=== PATIENT | female | born 1990 | race African-American/Black ===

== ENCOUNTER 2018-01-02 15:47 | Inpatient (IN) | payer OTHER ==
[2018-01-02 18:49] LABS: BASO % 0.2 % (0-2.0); EOS % 0.4 % (0-4.5); HEMATOCRIT 36.3 % (32.4-45.2); HEMOGLOBIN 12.6 GM/dL (10.7-15.3); MCH 31.5 pg (25.7-33.7); MCHC 34.6 g/dl (32.0-36.0); MEAN CELL VOLUME 91.2 fl (80-96); MEAN PLT VOLUME 9.1 fl (7.5-11.1); MONO % 12.1 % (3.8-10.2); NEUT % 70.3 % (42.8-82.8); PLATELET COUNT 193 K/MM3 (134-434); RBC 3.98 M/mm3 (3.60-5.2); RDW 14.6 % (11.6-15.6); WHITE BLOOD COUNT 5.5 K/mm3 (4.0-10.0)
[2018-01-02 18:50] LABS: RETICULOCYTES 2.24 % (0.5-1.5)
[2018-01-02 19:19] LABS: ALBUMIN 2.4 g/dl (3.4-5.0); ALK PHOS 122 U/L (45-117); ANION GAP 9 MMOL/L (8-16); BILIRUBIN,TOTAL 0.2 mg/dL (0.2-1); BLOOD UREA NITROGEN 9 mg/dL (7-18); CALCIUM 8.4 mg/dL (8.5-10.1); CHLORIDE 108 mmol/L (98-107); CO2 24 mmol/L (21-32); CREATININE 0.7 mg/dL (0.55-1.3); GAMMA GLUTAMYL TRANSPEPTIDASE 15 U/L (5-85); GLUCOSE,RANDOM 88 mg/dL (74-106); SGOT/AST 16 U/L (15-37); SGPT/ALT 20 U/L (13-61); SODIUM 141 mmol/L (136-145); TOT PROT 5.5 g/dl (6.4-8.2); URIC ACID 6.1 mg/dL (2.6-7.2)
[2018-01-02 19:31] LABS: URINE APPEARANCE SLCLOUDY; URINE BILIRUBIN NEGATIVE (<2.0 mg/dL); URINE COLOR DKYELLOW; URINE GLUCOSE (UA) NEGATIVE (NEGATIVE); URINE KETONE NEGATIVE (NEGATIVE); URINE LEUK ESTERASE NEGATIVE (NEGATIVE); URINE NITRITE NEGATIVE (NEGATIVE); URINE PROTEIN 3+ (NEGATIVE); URINE UROBILINOGEN NEGATIVE mg/dL (0.2-1.0)
[2018-01-02 19:42] LABS: EPI CELLS RARE /HPF (FEW); URINE BACTERIA RARE /hpf (NONE SEEN); URINE MUCUS FEW
[2018-01-02] MEDS ORDERED: BUTORPHANOL TARTRATE 1 MG/ML VIAL IVPB ONE (20:40)
[2018-01-02] MEDS ORDERED: PROMETHAZINE HCL 25 MG/1 ML VIAL IVPB ONE (20:40)
[2018-01-02 22:04] LABS: INR 0.85 (0.83-1.09)
[2018-01-02 22:06] LABS: ACTIVATED PTT 27.4 SECONDS (25.2-36.5)
[2018-01-02 22:09] LABS: ANION GAP 8 MMOL/L (8-16); BLOOD UREA NITROGEN 9 mg/dL (7-18); CALCIUM 8.2 mg/dL (8.5-10.1); CHLORIDE 108 mmol/L (98-107); CO2 26 mmol/L (21-32); CREATININE 0.7 mg/dL (0.55-1.3); GLUCOSE,RANDOM 73 mg/dL (74-106); SODIUM 141 mmol/L (136-145)
[2018-01-02] MEDS ORDERED: DINOPROSTONE 10 MG VAGINAL SUPPOSITORY VG ONE (22:15)
[2018-01-02 23:32] VITALS: BMI 38.0
[2018-01-03] MEDS: ELECTROLYTE-148 SOLN 1,000 ML IV SCH ×3 (04:00→18:30)
[2018-01-03] MEDS ORDERED: PROMETHAZINE HCL 25 MG/1 ML VIAL ONE (05:28)
[2018-01-03] MEDS ORDERED: BUTORPHANOL TARTRATE 1 MG/ML VIAL ONE ×2 (05:28)
[2018-01-03] MEDS ORDERED: TUBERCULIN PPD 5 TU/0.1ML SYRINGE (IN PATIENT USE ONLY) ID ONE (07:30)
--- NOTE | 2018-01-03 10:16 | PN ---
Ante-Partal Exam - Subjective Vital Signs: Vital Signs Temperature 97.9 F 01/03/18 08:00 Pulse Rate 63 01/03/18 09:00 Respiratory Rate 20 01/03/18 09:00 Blood Pressure 158/101 H 01/03/18 09:00 O2 Sat by Pulse Oximetry (%) Bleeding: No Headache: No Visual changes: No Right upper quadrant pain: No - Contractions Contractions: Yes Regularity: Regular Intensity: Mod/Strong - Exam during Labor Heart Rate: 135 Variability: Minimal Category: I Monitor Accelerations: Present Monitor Decelerations: None Exam: Vaginal Dilatation (cm): 4.5 Effacement (%): 60 Amniotic Membrane Status: Ruptured Nitrazine Test: Positive Amniotic Fluid: Clear Presentation: Vertex Station: -3 - Assessment/Plan Assessment/Plan: 27 y/o with SIUP at 39 weeks, IOL for preEclampsia AFVSS FHTs cat 1 IOL, s/p cervidil, removed this a.m., now in active labor for epidural continue expectant management if BPs elevated s/p epidural will administer antihypertensives, pt denies c/o headaches/RUQ pain or changes in vision,
[2018-01-03] MEDS ORDERED: FENTANYL/BUPIVACAINE/NS/PF - PCEA - 50 ML DISP.SYRIN EP ONE (10:20)
--- NOTE | 2018-01-03 10:23 | HP ---
Past Medical History - Admission Chief Complaint: here with elevated BPS from office for IOL History of Present Illness: 27 y/o female with gestational HTN admitted for induction. Pt received cervidil overnight which was removed at this a.m. S/P stadol/phenergan this a.m. Pt with h/o De La Paz Rods for scoliosis at age 9. Pt asymptomatic, denies MULTANI/RUQ pain or changes in vision. Some LE edema, nonpitting. History Source: Patient, Medical Record Limitations to Obtaining History: No Limitations - Past Medical History Cardiovascular: Yes: HTN (gestational this only) Pulmonary: Yes: Asthma Gastrointestinal: Yes: GERD Hepatobiliary: No: Hepatitis B, Hepatitis C Reproductive: No: Ectopic , Fibroids ...: 7 ...Para: 0 ...Term: 0 ...: 0 ...Spon : 1 ...Induced : 5 ... Weeks Gestation by Dates: 39.2 ...EDC by Dates: 01/07/18 ...EDC by Sono: 01/07/18 Infectious Disease: No: HIV, MRSA Psych: No: Anxiety, Bipolar, Depression - Past Surgical History Hx Myomectomy: No Hx Transabdominal Cerclage: No Additional Surgical History: De La Paz Rods,. D&C - Smoking History Smoking history: Never smoked - Alcohol/Substance Use Hx Alcohol Use: No - Social History Usual Living Arrangement: Yes: With Significant Other ADL: Independent History of Recent Travel: No Home Medications - Allergies Allergies/Adverse Reactions: Allergies Allergy/AdvReac Type Severity Reaction Status Date / Time No Known Allergies Allergy Verified 04/25/13 18:01 - Home Medications Home Medications: Ambulatory Orders No Home Medications 0 dose .ROUTE UTDICT 03/09/13 Review of Systems - Review of Systems Constitutional: reports: No Symptoms Eyes: reports: No Symptoms HENT: reports: No Symptoms Neck: reports: No Symptoms Cardiovascular: reports: No Symptoms Respiratory: reports: No Symptoms Gastrointestinal: reports: No Symptoms Genitourinary: reports: No Symptoms Breasts: reports: No Symptoms Reported Musculoskeletal: reports: No Symptoms Integumentary: reports: No Symptoms Neurological: reports: No Symptoms Endocrine: reports: No Symptoms Hematology/Lymphatic: reports: No Symptoms Psychiatric: reports: No Symptoms Physical Exam - Maternity Vital Signs: Vital Signs Temperature 97.9 F 01/03/18 08:00 Pulse Rate 63 01/03/18 09:00 Respiratory Rate 20 01/03/18 09:00 Blood Pressure 158/101 H 01/03/18 09:00 O2 Sat by Pulse Oximetry (%) Constitutional: Yes: Well Nourished, Mild Distress (with contractions) Neck: Yes: Supple Cardiovascular: Yes: Regular Rate and Rhythm Lungs: Clear to auscultation - Abdominal Exam/OB Presentation: Vertex Contractions: Yes Regularity: Regular Intensity: Mod/Strong Category: I Accelerations: Uniform Decelerations: None - Vaginal Exam/OB Amniotic Membrane Status: Ruptured (for clear fluid at 9am) Presentation: Vertex/Position Station: -3 - Physical Exam Edema: Yes Edema: LLE: 1+, RLE: 1+ Psychiatric: Yes: Alert, Oriented - Labs Lab Results: CBC, BMP 01/02/18 17:30 01/02/18 18:00 Hemorrhage Risk Assessment - Risk Factors Medium Risk Factors: Yes: None High Risk Factors: Yes: None Risk Score: 1 Risk Level: Medium Risk Problem List - Problems (1) Pre-eclampsia Code(s): O14.90 - UNSPECIFIED PRE-ECLAMPSIA, UNSPECIFIED TRIMESTER (2) Term Code(s): Z34.80 - ENCOUNTER FOR SUPRVSN OF NORMAL , UNSP TRIMESTER Assessment/Plan 27 y/o with SIUP at 39.2 weeks, IOL for gHTN, diagnosed with pre Eclampsia upon admission FHTS cat 1 gHTN/preEclampsia - IOL, BPs overall within mild range, occasional severe range pressures with contractions, will administer magnesium/antihypertensives if pt becomes symptomatic or severe range pressures persist s/p cervidil, now in active labor continue current management
[2018-01-03] MEDS ORDERED: LIDOCAINE HCL 1% PRESERVATIVE FREE - 30ML VIAL ONE (10:44)
[2018-01-03] MEDS ORDERED: BUTORPHANOL TARTRATE 1 MG/ML VIAL IVPB ONE ×2 (11:22→15:39)
[2018-01-03] MEDS ORDERED: PROMETHAZINE HCL 25 MG/1 ML VIAL IVPUSH ONE ×2 (11:22→15:39)
--- NOTE | 2018-01-03 15:39 | PN ---
Ante-Partal Exam - Subjective Subjective: Pt tolerating contractions. Vital Signs: Vital Signs Temperature 98.7 F 01/03/18 12:05 Pulse Rate 66 01/03/18 15:00 Respiratory Rate 20 01/03/18 15:00 Blood Pressure 139/83 01/03/18 15:00 O2 Sat by Pulse Oximetry (%) Bleeding: No Headache: No Visual changes: No Right upper quadrant pain: No Pain (scale 1-10): 2 - Contractions Contractions: Yes Regularity: Irregular - Exam during Labor Heart Rate: 135 Variability: Moderate Category: I Monitor Accelerations: Present Monitor Decelerations: None Exam: Vaginal Dilatation (cm): 6 Amniotic Membrane Status: Ruptured (exam per nursing staff) Nitrazine Test: Positive Presentation: Vertex Station: -3 - Assessment/Plan Assessment/Plan: Plan of care discussed with pt pt unable to get epidural tolerating with stadol/phenergan does not desire c section at this time will start pitocin then use stadol/phenergan PRN pain
[2018-01-03] MEDS ORDERED: OXYTOCIN 30 UNITS in 0.9% NS 30 UNIT/500 ML INFUS.BAG IVPB SCH (15:45)
[2018-01-03] MEDS ORDERED: OXYTOCIN 30 UNITS in 0.9% NS 30 UNIT/500 ML INFUS.BAG IVPB ONE (15:51)
--- NOTE | 2018-01-04 | PN ---
Ante-Partal Exam - Subjective Subjective: Pt with mild pain Vital Signs: Vital Signs Temperature 98.8 F 01/03/18 23:00 Pulse Rate 69 01/03/18 23:00 Respiratory Rate 20 01/03/18 23:00 Blood Pressure 143/93 01/03/18 23:00 O2 Sat by Pulse Oximetry (%) Bleeding: No Headache: No Visual changes: No Right upper quadrant pain: No - Contractions Contractions: Yes Regularity: Irregular Intensity: Mild Monitor Mode: External - Exam during Labor Heart Rate: 140 Category: I Monitor Accelerations: Present Monitor Decelerations: None Exam: Vaginal Dilatation (cm): 6 cm Amniotic Fluid: Clear Presentation: Vertex Station: -2 - Assessment/Plan Assessment/Plan: Cat 1 hypertension Plan pitocin augmentation pt and BF discussed desire to wait to see if made progress
--- NOTE | 2018-01-04 00:02 | PN ---
Ante-Partal Exam - Subjective Vital Signs: Vital Signs Temperature 98.8 F 01/03/18 23:00 Pulse Rate 69 01/03/18 23:00 Respiratory Rate 20 01/03/18 23:00 Blood Pressure 143/93 01/03/18 23:00 O2 Sat by Pulse Oximetry (%) - Exam during Labor Category: I Monitor Accelerations: Present Monitor Decelerations: None Exam: Vaginal Dilatation (cm): 7 cm Presentation: Vertex Station: -1 - Intrapartum Hemorrhage Risk Risk Score: 0 Risk Level: Low Risk - Assessment/Plan Assessment/Plan: induction of labor Cat 1 Plan continue pitocin
[2018-01-04] MEDS ORDERED: AMPICILLIN SODIUM 2 GM VIAL ONE (02:53)
[2018-01-04] MEDS ORDERED: DEXAMETHASONE SOD PHOSPHATE 4 MG/1 ML VIAL IVPUSH PRN (03:44)
[2018-01-04] MEDS ORDERED: PROMETHAZINE HCL 25 MG/1 ML VIAL IVPB PRN (03:44)
[2018-01-04] MEDS ORDERED: ONDANSETRON 4 MG/2 ML VIAL IVPUSH PRN (03:44)
[2018-01-04] MEDS ORDERED: HYDROmorphone *PCA* 10MG/50ML DISP.SYRIN PCA SCH (03:45)
[2018-01-04] MEDS ORDERED: LACTATED RINGERS SOLUTION 1,000 ML IV SCH (03:45)
[2018-01-04] MEDS ORDERED: SUCCINYLCHOLINE CHLORIDE 200 MG/10 ML VIAL ONE (03:51)
[2018-01-04] MEDS ORDERED: PROPOFOL 20 ML ONE (03:51)
[2018-01-04] MEDS ORDERED: MIDAZOLAM HCL 2 MG/2 ML SINGLE DOSE VIAL ONE (03:51)
[2018-01-04] MEDS ORDERED: LIDOCAINE HCL/PF 2% SDV 5ML VIAL ONE (03:53)
[2018-01-04] MEDS ORDERED: CLINDAMYCIN PHOSPHATE 600 MG/4 ML VIAL ONE (04:00)
[2018-01-04] MEDS ORDERED: OXYTOCIN 10 UNITS/ML VIAL ONE (04:10)
[2018-01-04] MEDS ORDERED: DEXAMETHASONE SOD PHOSPHATE 4 MG/1 ML VIAL ONE (04:11)
[2018-01-04] MEDS ORDERED: KETOROLAC TROMETHAMINE 30 MG/1 ML VIAL ONE (04:16)
[2018-01-04] MEDS ORDERED: OXYTOCIN 20 UNITS in 0.9% NS 20 UNIT/1,000 ML INFUS.BAG IV ONE (04:22)
[2018-01-04 04:55] LABS: ARTERIAL BLOOD GAS PCO2 42.5 mmHg (35-45); ARTERIAL BLOOD GAS pH 7.34 (7.35-7.45)
--- NOTE | 2018-01-04 04:58 | PN ---
Ante-Partal Exam - Subjective Subjective: Pt with no progress by exam Vital Signs: Vital Signs Temperature 99.5 F 01/04/18 02:49 Pulse Rate 72 01/04/18 02:49 Respiratory Rate 18 01/04/18 02:49 Blood Pressure 153/93 01/04/18 02:49 O2 Sat by Pulse Oximetry (%) Bleeding: Yes - Contractions Contractions: Yes Regularity: Regular Monitor Mode: External - Exam during Labor Category: II Monitor Accelerations: Present Monitor Decelerations: Variable Exam: Vaginal Dilatation (cm): 7 Effacement (%): 90 Amniotic Membrane Status: Ruptured Presentation: Vertex Station: -1 - Assessment/Plan Assessment/Plan: Failure to Progress Hypertension 39 week Cat 2 hx of scoliosis Plan primary low transverse section notify Peds and anesthesia pt informed will need general anesthesia
[2018-01-04] MEDS ORDERED: ELECTROLYTE-148 SOLN 1,000 ML IV SCH (05:00)
[2018-01-04 05:14] LABS: ARTERIAL BLOOD GAS PO2 34.9 mmHg (80-100)
[2018-01-04 05:17] LABS: VENOUS PC02 44.2 mmHg (38-52); VENOUS PH 7.35 (7.32-7.42); VENOUS PO2 36.3 mmHg (28-48)
--- NOTE | 2018-01-04 06:02 | OP ---
Operative Note - Note: Operative Date: 01/04/18 Pre-Operative Diagnosis: Failure to progress. hypertension. IUPat 39 week Operation: Low transverse Section Findings: live female infant Post-Operative Diagnosis: Same as Pre-op Surgeon: Juanita Chou Cook Larder: Alexander Montalvo Anesthesia: General Estimated Blood Loss (mls): 700 Operative Report Dictated: Yes
[2018-01-04] MEDS ORDERED: METHYLERGONOVINE MALEATE 0.2 MG/1 ML AMP IM PRN (06:18)
[2018-01-04] MEDS ORDERED: IBUPROFEN 800 MG/8 ML IJ IVPB PRN (06:18)
[2018-01-04] MEDS ORDERED: HYDROmorphone *PCA* 10MG/50ML DISP.SYRIN PCA ONE (06:30)
[2018-01-04] MEDS ORDERED: OXYTOCIN 20 UNITS in 0.9% NS 20 UNIT/1,000 ML INFUS.BAG IV SCH (06:30)
--- NOTE | 2018-01-04 06:53 | OP ---
DATE OF OPERATION: 01/04/2018 PREOPERATIVE DIAGNOSES: Failure to progress, hypertension, intrauterine at 39 weeks. OPERATION: Low transverse section. FINDINGS: Live female . SURGEON: Hakeem Chou MD EMISSIONS TESTING AND REPAIR TECHNICIAN: BURAK Ramirez; unavailable POSTOPERATIVE DIAGNOSES: Failure to progress, hypertension, intrauterine at 39 weeks. ANESTHESIOLOGIST: Abdoulaye Maradiaga MD ANESTHESIA: General. ESTIMATED BLOOD LOSS: 700 mL. PROCEDURE: Patient was taken to the operating room, placed in the supine position, prepped and draped in the usual sterile fashion. After general anesthesia had been given scalpel was then used to make a low transverse Pfannenstiel skin incision. Cautery was then used to go through the layers of the abdominal wall to the level of the fascia. Fascia was cut in the midline and cautery was then used to open the fascia in a smiling fashion. Tameka was then used to bluntly and sharply dissect the rectus muscle off the fascia. Muscle split in the midline. Peritoneal cavity was then entered and carried up and downward. Bladder retractor was then placed. Vesicouterine reflection was then entered. Scalpel was then used to make a low transverse uterine incision. Incision was carried up with the use of bandage scissors. A live female infant was delivered in ROT position. Nose and mouth suction performed. Shoulders were delivered without difficulty. Cord was clamped and cut. Cord blood obtained. Cord pH obtained. Placenta was manually extracted from the uterus. Uterus exteriorized and cleaned with clean lap pads. DeLee cord clamping was also done. Uterine incision was then closed using 0 Biosyn suture, 1st layer continuous interlocking, 2nd layer imbricating the 1st layer. Hemostasis was achieved using figure-of-8 sutures. Uterus interiorized. Abdominal cavity cleaned with clean lap pad. Peritoneum closed with 0 Biosyn suture. Fascia was then closed using 0 Vicryl suture in 2 parts. Subcutaneous was closed using interrupted sutures using 0 Biosyn suture. Skin was then closed using 3-0 Vicryl in subcuticular fashion. Wound was washed and dressed. Patient tolerated procedure well. Estimated blood loss is 700 mL. HAKEEM CHOU M.D. [id number]
[2018-01-04] MEDS ORDERED: AMPICILLIN - 2 GM in SODIUM CHLORIDE 100 ML IVPB ONE (07:00)
[2018-01-04] MEDS ORDERED: DEXTROSE 5%-WATER - 50 ML IVPB ONE ×2 (09:46→17:40)
[2018-01-04] MEDS ORDERED: ceFAZolin SODIUM 1 GM VIAL ONE ×2 (09:46→17:40)
[2018-01-04] MEDS: CEFAZOLIN 1 GM in DEXTROSE 5%-WATER - 50 ML IVPB SCH ×2 (09:49→17:47)
[2018-01-04] MEDS ORDERED: CEFAZOLIN 1 GM in DEXTROSE 5%-WATER - 50 ML IVPB SCH (10:00)
[2018-01-04] MEDS ORDERED: AMPICILLIN - 1 GM in SODIUM CHLORIDE 100 ML IVPB SCH (11:00)
[2018-01-04] MEDS ORDERED: ALBUTEROL SO4 8 GM HFA INHALER IH PRN (14:41)
[2018-01-05] MEDS: CEFAZOLIN 1 GM in DEXTROSE 5%-WATER - 50 ML IVPB SCH (03:44)
[2018-01-05] MEDS ORDERED: PCA PUMP KEY 1 EACH EACH ONE (06:08)
[2018-01-05] MEDS ORDERED: oxyCODONE HCL 5 MG TABLET PO PRN (06:18)
[2018-01-05] MEDS ORDERED: BISACODYL 10 MG SUPP.RECT RC PRN (06:18)
[2018-01-05 07:43] LABS: BASO % 0.2 % (0-2.0); HEMATOCRIT 29.6 % (32.4-45.2); HEMOGLOBIN 9.7 GM/dL (10.7-15.3); LYMPH % 18.1 % (8-40); MCH 31.2 pg (25.7-33.7); MCHC 32.6 g/dl (32.0-36.0); MEAN CELL VOLUME 95.9 fl (80-96); MEAN PLT VOLUME 8.4 fl (7.5-11.1); MONO % 10.2 % (3.8-10.2); NEUT % 70.5 % (42.8-82.8); PLATELET COUNT 176 K/MM3 (134-434); RBC 3.09 M/mm3 (3.60-5.2); RDW 15.2 % (11.6-15.6); WHITE BLOOD COUNT 8.9 K/mm3 (4.0-10.0)
--- NOTE | 2018-01-05 08:15 | PN ---
Progress Note (SOAP) - Subjective Chief Complaint: Pt doing well - Current Medications Current Medications: Active Medications Acetaminophen (Tylenol -) 650 mg PO Q4H PRN PRN Reason: FEVER Albuterol Sulfate (Ventolin Hfa Inhaler -) 2 puff IH Q4H PRN PRN Reason: SHORTNESS OF BREATH Bisacodyl (Dulcolax Suppository -) 10 mg RC PRN PRN PRN Reason: CONSTIPATION Dexamethasone Sodium Phosphate (Decadron Injection -) 4 mg IVPUSH ONCE PRN PRN Reason: NAUSEA AND/OR VOMITING Diphenhydramine HCl (Benadryl Injection -) 12.5 mg IVPUSH ONCE PRN PRN Reason: FOR ITCHING Diphtheria/Tetanus/Acell Pertussis (Boostrix -) 0.5 ml IM .ONCE ONE Stop: 01/06/18 10:01 Ferrous Sulfate (Feosol -) 325 mg PO BID FRANCISCO Hydromorphone HCl (Dilaudid Ruling Machine Feeder -) 10 mg PRIVATE SECRETARY PRIVATE SECRETARY FRANCISCO; Protocol Stop: 01/11/18 03:45 Last Admin: 01/04/18 06:33 Dose: 10 mg Parenteral Electrolytes (Plasma-Lyte 148 -) 1,000 mls @ 125 mls/hr IV ASDIR FRANCISCO Oxytocin/Sodium Chloride (Normal Saline+20 Units Oxytocin -) 20 unit in 1,000 mls @ 125 mls/hr IV ASDIR FRANCISCO Last Admin: 01/04/18 07:32 Dose: 125 mls/hr Cefazolin Sodium 1 gm/ (Dextrose) 50 mls @ 100 mls/hr IVPB Q8H-IV FRANCISCO Stop: 01/05/18 09:59 Last Admin: 01/05/18 03:44 Dose: 100 mls/hr Ibuprofen (Caldolor Injection -) 800 mg IVPB Q8H PRN PRN Reason: FEVER Ibuprofen (Motrin -) 600 mg PO Q4H PRN PRN Reason: PAIN LEVEL 1 - 3 Influenza Virus Vaccine Quadrival (Flulaval Quad 4567-1680) 60 mcg IM .ONCE ONE Stop: 01/06/18 10:01 Methylergonovine Maleate (Methergine Injection -) 0.2 mg IM Q4H PRN PRN Reason: Excessive Bleeding (L&D) Ondansetron HCl (Zofran Injection) 4 mg IVPUSH Q4H PRN PRN Reason: NAUSEA AND/OR VOMITING Oxycodone HCl (Roxicodone -) 5 mg PO Q4H PRN PRN Reason: PAIN LEVEL 4 - 6 Oxycodone HCl (Roxicodone -) 10 mg PO Q4H PRN PRN Reason: PAIN LEVEL 7 - 10 Pneumococcal 13-Valent Conj Vacc (Prevnar 13 Syringe -) 0.5 ml IM .ONCE ONE Stop: 01/06/18 10:01 Multivit/Folic Acid/Iron ( Vitamins (Sjr) -) 1 tab PO DAILY FRANCISCO Promethazine HCl (Phenergan Injection -) 12.5 mg IVPB Q6H PRN PRN Reason: NAUSEA AND/OR VOMITING Simethicone (Mylicon -) 80 mg PO Q4H PRN PRN Reason: GAS - Objective Vital Signs: Vital Signs Temperature 98.5 F 01/05/18 06:00 Pulse Rate 76 01/05/18 06:00 Respiratory Rate 18 01/05/18 06:00 Blood Pressure 136/89 01/05/18 06:00 O2 Sat by Pulse Oximetry (%) 100 01/04/18 07:30 Constitutional: Yes: Well Nourished, No Distress Cardiovascular: Yes: WNL Gastrointestinal: Yes: WNL, Normal Bowel Sounds, Soft ....Post : Yes: Uterus firm, Uterus non-tender Breast(s): Yes: WNL Musculoskeletal: Yes: WNL Extremities: Yes: WNL Peripheral Pulses WNL: No Edema: No Wound/Incision: Yes: Clean/Dry, Well Approximated, Open to air Labs Lab Results: CBC, BMP 01/02/18 18:00 Problem List - Problems (1) delivery delivered Code(s): O82 - ENCOUNTER FOR DELIVERY WITHOUT INDICATION Assessment/Plan POD 1 stable Plan OOB continue present management
[2018-01-05] MEDS: SIMETHICONE 80 MG TAB.CHEW (FP) PO PRN ×2 (09:07→13:54)
[2018-01-05] MEDS: oxyCODONE HCL 5 MG TABLET PO PRN ×2 (09:07→13:54)
[2018-01-05] MEDS: PRENATAL VITAMINS W/ FOLIC ACID TABLET (FP) PO SCH (09:07)
[2018-01-05] MEDS: FERROUS SO4 325 MG TABLET (FP) PO SCH ×2 (09:07→21:15)
[2018-01-05] MEDS: IBUPROFEN 600 MG TABLET (FP) PO PRN ×2 (09:07→13:55)
--- NOTE | 2018-01-05 09:55 | PN ---
Progress Note (short form) - Note Progress Note: Anesthesia/Pain Pt seen and examined S:Alert and awake comfortable O: Vital Signs Temperature 98.7 F 01/05/18 08:13 Pulse Rate 81 01/05/18 08:13 Respiratory Rate 20 01/05/18 08:13 Blood Pressure 137/90 01/05/18 08:13 O2 Sat by Pulse Oximetry (%) 100 01/04/18 07:30 CBC, BMP 01/05/18 06:40 01/02/18 18:00 a/p: Current Active Problems delivery delivered (Acute) Pre-eclampsia (Acute) Term (Acute) doing well post op [facility] ROOM stopped Continue current care Jack Davila MD
[2018-01-06] MEDS: SIMETHICONE 80 MG TAB.CHEW (FP) PO PRN ×4 (00:58→23:51)
[2018-01-06] MEDS: IBUPROFEN 600 MG TABLET (FP) PO PRN ×4 (00:58→23:52)
[2018-01-06] MEDS: oxyCODONE HCL 5 MG TABLET PO PRN ×4 (00:59→23:52)
[2018-01-06] MEDS: PRENATAL VITAMINS W/ FOLIC ACID TABLET (FP) PO SCH (09:52)
[2018-01-06] MEDS: FERROUS SO4 325 MG TABLET (FP) PO SCH ×2 (09:52→22:18)
[2018-01-06] MEDS ORDERED: FLU VACCINE QUAD 60 MCG/0.5 ML (MDV 18-19) IM ONE (10:00)
[2018-01-06] MEDS ORDERED: DIPHTH,PERTUSS(ACELL),TET 0.5 ML DISP.SYRIN IM ONE (10:00)
[2018-01-06] MEDS ORDERED: PNEUMOC 13-VAL CONJ-DIP CRM/PF 0.5 ML DISP.SYRIN IM ONE (10:00)
--- NOTE | 2018-01-06 10:13 | PN ---
Post Progress Note - Subjective Subjective: 27 yo Para 1 status post primary , seen and evaluated. Doing well Post Day: 2 Type of Delivery: Primary C/S Vital Signs: Vital Signs Temperature 98.3 F 01/06/18 10:00 Pulse Rate 79 01/06/18 10:00 Respiratory Rate 20 01/06/18 10:00 Blood Pressure 129/70 01/06/18 10:00 O2 Sat by Pulse Oximetry (%) 100 01/04/18 07:30 Uterus: Yes: Fundus Firm Incision: Yes: Dressing dry and intact Abdomen/GI: Yes: Abdomen soft, Tolerating PO Lochia: Yes: Rubra Lochia, amount: Small Extremities: Yes: Calves non-tender Activity: Ambulating - Labs Labs: CBC WBC 8.9 K/mm3 (4.0-10.0) 01/05/18 06:40 RBC 3.09 M/mm3 (3.60-5.2) L 01/05/18 06:40 Hgb 9.7 GM/dL (10.7-15.3) L 01/05/18 06:40 Hct 29.6 % (32.4-45.2) L D 01/05/18 06:40 MCV 95.9 fl (80-96) 01/05/18 06:40 MCH 31.2 pg (25.7-33.7) 01/05/18 06:40 MCHC 32.6 g/dl (32.0-36.0) 01/05/18 06:40 RDW 15.2 % (11.6-15.6) 01/05/18 06:40 Plt Count 176 K/MM3 (134-434) 01/05/18 06:40 MPV 8.4 fl (7.5-11.1) 01/05/18 06:40 Absolute Neuts (auto) 6.3 K/mm3 (1.5-8.0) 01/05/18 06:40 Neutrophils % 70.5 % (42.8-82.8) 01/05/18 06:40 Lymphocytes % 18.1 % (8-40) 01/05/18 06:40 Monocytes % 10.2 % (3.8-10.2) 01/05/18 06:40 Eosinophils % 1.0 % (0-4.5) D 01/05/18 06:40 Basophils % 0.2 % (0-2.0) 01/05/18 06:40 Nucleated RBC % 0 % (0-0) 01/05/18 06:40 Retic Count 2.24 % (0.5-1.5) H 01/02/18 17:30 Haptoglobin 26 mg/dL (34-200) L 01/02/18 17:30 Assessment/Plan Status post primary Ambulation Analgesia as needed Continue post op care
[2018-01-06] MEDS: ACETAMINOPHEN 325 MG TABLET (FP) PO PRN (11:17)
[2018-01-07] MEDS: ACETAMINOPHEN 325 MG TABLET (FP) PO PRN ×4 (01:33→17:43)
[2018-01-07 07:31] LABS: BASO % 0.3 % (0-2.0); EOS % 1.1 % (0-4.5); HEMATOCRIT 30.9 % (32.4-45.2); HEMOGLOBIN 10.2 GM/dL (10.7-15.3); LYMPH % 14.4 % (8-40); MCH 31.5 pg (25.7-33.7); MCHC 33.1 g/dl (32.0-36.0); MEAN CELL VOLUME 95.2 fl (80-96); MEAN PLT VOLUME 7.5 fl (7.5-11.1); MONO % 8.4 % (3.8-10.2); NEUT % 75.8 % (42.8-82.8); PLATELET COUNT 200 K/MM3 (134-434); RBC 3.24 M/mm3 (3.60-5.2); RDW 14.9 % (11.6-15.6); WHITE BLOOD COUNT 7.3 K/mm3 (4.0-10.0)
--- NOTE | 2018-01-07 07:43 | PN ---
Post Progress Note - Subjective Subjective: Patient seen and evaluated, doing well. Post Day: 3 Type of Delivery: Primary C/S Vital Signs: Vital Signs Temperature 98.1 F 01/06/18 21:00 Pulse Rate 81 01/06/18 21:00 Respiratory Rate 20 01/06/18 21:00 Blood Pressure 141/91 01/06/18 21:00 O2 Sat by Pulse Oximetry (%) 100 01/04/18 07:30 Breast Exam: Yes: Soft Uterus: Yes: Fundus Firm Incision: Yes: Sutures intact Abdomen/GI: Yes: Abdomen soft, Tolerating PO Lochia: Yes: Rubra Lochia, amount: Small Extremities: Yes: Calves non-tender Perineum: Yes: Intact Activity: Ambulating - Labs Labs: CBC WBC 8.9 K/mm3 (4.0-10.0) 01/05/18 06:40 RBC 3.09 M/mm3 (3.60-5.2) L 01/05/18 06:40 Hgb 9.7 GM/dL (10.7-15.3) L 01/05/18 06:40 Hct 29.6 % (32.4-45.2) L D 01/05/18 06:40 MCV 95.9 fl (80-96) 01/05/18 06:40 MCH 31.2 pg (25.7-33.7) 01/05/18 06:40 MCHC 32.6 g/dl (32.0-36.0) 01/05/18 06:40 RDW 15.2 % (11.6-15.6) 01/05/18 06:40 Plt Count 176 K/MM3 (134-434) 01/05/18 06:40 MPV 8.4 fl (7.5-11.1) 01/05/18 06:40 Absolute Neuts (auto) 6.3 K/mm3 (1.5-8.0) 01/05/18 06:40 Neutrophils % 70.5 % (42.8-82.8) 01/05/18 06:40 Lymphocytes % 18.1 % (8-40) 01/05/18 06:40 Monocytes % 10.2 % (3.8-10.2) 01/05/18 06:40 Eosinophils % 1.0 % (0-4.5) D 01/05/18 06:40 Basophils % 0.2 % (0-2.0) 01/05/18 06:40 Nucleated RBC % 0 % (0-0) 01/05/18 06:40 Retic Count 2.24 % (0.5-1.5) H 01/02/18 17:30 Haptoglobin 26 mg/dL (34-200) L 01/02/18 17:30 Assessment/Plan Status post primary Ambulation Analgesia as needed Continue post op care D/C home in am
[2018-01-07] MEDS: SIMETHICONE 80 MG TAB.CHEW (FP) PO PRN (08:43)
[2018-01-07] MEDS: IBUPROFEN 600 MG TABLET (FP) PO PRN ×3 (08:43→17:44)
[2018-01-07] MEDS: FERROUS SO4 325 MG TABLET (FP) PO SCH ×3 (08:44→22:03)
[2018-01-07] MEDS: PRENATAL VITAMINS W/ FOLIC ACID TABLET (FP) PO SCH ×2 (08:45→08:48)
[2018-01-08] MEDS: IBUPROFEN 600 MG TABLET (FP) PO PRN ×2 (08:03→11:44)
[2018-01-08] MEDS: ACETAMINOPHEN 325 MG TABLET (FP) PO PRN ×2 (08:04→11:45)
[2018-01-08] MEDS: SIMETHICONE 80 MG TAB.CHEW (FP) PO PRN (08:04)
[2018-01-08 09:15] VITALS: BP 125/94; PULSE 81; TEMP 98.3
[2018-01-08] MEDS: PRENATAL VITAMINS W/ FOLIC ACID TABLET (FP) PO SCH (09:17)
[2018-01-08] MEDS: FERROUS SO4 325 MG TABLET (FP) PO SCH (09:17)
--- NOTE | 2018-01-08 09:25 | DS ---
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 Vital Signs: Vital Signs Temperature 98.3 F 01/08/18 08:00 Pulse Rate 81 01/08/18 09:00 Respiratory Rate 20 01/08/18 09:00 Blood Pressure 125/94 01/08/18 09:00 O2 Sat by Pulse Oximetry (%) 100 01/04/18 07:30 Constitutional: Yes: Well Nourished, No Distress Cardiovascular: Yes: WNL, Regular Rate and Rhythm Gastrointestinal: Yes: WNL, Normal Bowel Sounds, Soft ....Post : Yes: Uterus firm, Uterus non-tender Breast(s): Yes: WNL Musculoskeletal: Yes: WNL Extremities: Yes: WNL Integumentary: Yes: WNL Neurological: Yes: WNL, Alert, Oriented Labs: CBC, BMP 01/07/18 07:00 01/02/18 18:00 Delivery - Delivery Section: Low Flap Transverse Type of Anesthesia: General Episiotomy/Laceration: None EBL (cc): 700 Delivery, Single - Stages of Labor Date 1st Stage Initiatied: 01/03/18 Time 1st Stage Initiated: 05:30 Date of Delivery: 01/04/18 Time of Delivery: 04:10 Time Placenta Delivered: 04:11 Placenta: Yes: Manual Removal - Condition of Infant Consumer Attorney/Staff Nurse Midwife Present: Yes Name: Adrianne Momin Infant Gender: Female Weight: 6 lb 2 oz Position: Right, OT Total Hours ROM (Hrs/Mins): 19hrs 11min - 1 Minute Total Score: 9 5 Minutes Total Score: 9 - [place] Feeding Plan Initial Plan: Elected not to breastfeed exclusively throughout hospitalization Discharge Summary Reason For Visit: LABOR INDUCTION Current Active Problems delivery delivered (Acute) Pre-eclampsia (Acute) Term (Acute) Procedures: Principal: Primary Section - Instructions Referrals: Juanita Chou MD [Staff Physician] - Disposition: HOME - Home Medications Comprehensive Discharge Medication List: Ambulatory Orders Ferrous Sulfate [Feosol] 325 mg PO DAILY 01/04/18 Vitamins (Sjr) - 1 tab PO DAILY 01/04/18 Acetaminophen [Tylenol] 325 mg PO QID PRN #30 capsule 01/08/18
--- NOTE | 2018-01-09 15:03 | PATH ---
Surgical Pathology Report Patient Name: KELSEY CARNEY [facility]. Rec. 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 Specimen(s) Received PLACENTA Clinical History , 39.4 weeks, arrest of dilatation Final Diagnosis PLACENTA, SECTION: 453 G THIRD TRIMESTER PLACENTA WITH TRIVASCULAR UMBILICAL CORD AND UNREMARKABLE PLACENTAL MEMBRANES. Electronically Signed Lola Guajardo M.D. Gross Description The specimen is received fresh labeled placenta and is a 453 gram, 18.5 x 15.0 x 2.0 cm. placenta with attached membranes and umbilical cord. The attached membranes are curtis, translucent with focal opacities and insert marginally. The umbilical cord measures 9 cm. in length and averages 1 cm. in diameter. The cord inserts eccentrically, 3.5 cm. to the nearest margin. No true knots or strictures are identified. Cut surface of the umbilical cord reveals 3 vessels. The surface is greer-blue with minimal fibrin deposition and appropriate caliber vessels. The maternal surface is red-brown with focal defects. Sectioning reveals red-brown, spongy parenchyma. No lesions are identified. Rags Laborer sections are submitted in three cassettes as follows: 1- membrane rolls and umbilical cord; 2-3- full thickness sections of placenta. 01/06/2018 [facility]01/06/2018
== END 2018-01-08 13:00 | disposition home or self-care (01) | DRG 540 ==
LOC: JDEL 15:47 → JLDR 20:35 → J3W 01-04 08:00
PROVIDERS: ADMIT Obstetrics & Gynecology; ATTEND Obstetrics & Gynecology
PROC: 10D00Z1 Extraction of Products of Conception, Low, Open Approach (ICD-10-PCS; principal; 2018-01-04)
DX: O14.94 Unspecified pre-eclampsia, complicating childbirth (principal); O13.4 Gestational [pregnancy-induced] hypertension without significant proteinuria, complicating childbirth; O62.0 Primary inadequate contractions; Z3A.39 39 weeks gestation of pregnancy; Z37.0 Single live birth
CPT/HCPCS: 36415; 36600; 59025; 80048; 80053; 81003; 81015; 82803; 82977; 83010; 84550; 85025; 85032; 85044; 85610; 85730; 86593; 86850; 86900; 86901; 88307-TC; 90670; 90688; 90715; G0008; G0009

== ENCOUNTER 2019-11-01 06:05 | Inpatient (IN) | payer OTHER ==
[2019-11-01 06:54] VITALS: BMI 37.2
[2019-11-01] MEDS ORDERED: ONDANSETRON 4 MG/2 ML VIAL IVPUSH PRN ×2 (08:13→10:41)
[2019-11-01] MEDS ORDERED: morphine SULFATE/PF 0.5 MG/ML (2cc Syringe - QUVA) ONE (08:25)
[2019-11-01] MEDS ORDERED: CITRIC ACID/SODIUM CITRATE 30 ML UNIT-DOSE CUP PO ONE (08:59)
[2019-11-01] MEDS ORDERED: ELECTROLYTE-148 SOLN 1,000 ML IV SCH (09:00)
[2019-11-01] MEDS ORDERED: MIDAZOLAM HCL 2 MG/2 ML SINGLE DOSE VIAL ONE (09:00)
[2019-11-01] MEDS ORDERED: BENZOCAINE 28 GM HEMORRHOIDAL OINTMENT RC PRN (09:01)
[2019-11-01] MEDS ORDERED: METHYLERGONOVINE MALEATE 0.2 MG/1 ML AMP IM PRN (09:01)
[2019-11-01] MEDS ORDERED: diphenhydrAMINE HCL 25 MG CAPSULE (FP) PO PRN (09:01)
[2019-11-01] MEDS ORDERED: WITCH HAZEL 50% (TUCKS) 40 PAD/JAR PAD TP PRN (09:01)
[2019-11-01] MEDS ORDERED: BENZOCAINE 20% 57 GM BOTTLE TP PRN (09:01)
--- NOTE | 2019-11-01 09:04 | HP ---
Past Medical History - Primary Care Physician PCP:: Juanita Chou - Admission Chief Complaint: Previous Section. Umbilical hernia History of Present Illness: 29 yo with prev CS for repeat CS and possible hernia repair History Source: Patient Limitations to Obtaining History: No Limitations - Past Medical History Cardiovascular: Yes: HTN (gestational this only) Pulmonary: Yes: Asthma Gastrointestinal: Yes: GERD ...: 6 ...Para: 1 ...Term: 1 ...: 0 ...Spon : 1 ...Induced : 3 ...Living Children: 1 ...EDC by Sono: 11/06/19 - Past Surgical History Past Surgical History: Yes: Hx Myomectomy: No Hx Transabdominal Cerclage: No - Smoking History Smoking history: Never smoked Have you smoked in the past 12 months: No - Alcohol/Substance Use Hx Alcohol Use: No History of Substance Use: reports: None - Social History ADL: Independent History of Recent Travel: No Home Medications - Allergies Allergies/Adverse Reactions: Allergies Allergy/AdvReac Type Severity Reaction Status Date / Time No Known Allergies Allergy Verified 11/02/19 09:57 - Home Medications Home Medications: Ambulatory Orders Vitamins (Sjr) - 1 tab PO DAILY 01/04/18 Ibuprofen [Motrin -] 600 mg PO QID #28 tablet 11/04/19 Oxycodone HCl/Acetaminophen [Percocet 5-325 mg Tablet] 1 - 2 tab PO Q6H #20 tab MDD 6 11/05/19 Review of Systems - Review of Systems Constitutional: reports: No Symptoms Eyes: reports: No Symptoms HENT: reports: No Symptoms Neck: reports: No Symptoms Cardiovascular: reports: No Symptoms Respiratory: reports: No Symptoms Gastrointestinal: reports: No Symptoms Genitourinary: reports: No Symptoms Breasts: reports: No Symptoms Reported Musculoskeletal: reports: No Symptoms Integumentary: reports: No Symptoms Neurological: reports: No Symptoms Endocrine: reports: No Symptoms Hematology/Lymphatic: reports: No Symptoms Psychiatric: reports: No Symptoms Physical Exam - Maternity Vital Signs: Vital Signs Temperature 98.4 F 11/01/19 06:30 Pulse Rate 85 11/01/19 06:30 Respiratory Rate 20 11/01/19 06:30 Blood Pressure 101/63 11/01/19 06:30 O2 Sat by Pulse Oximetry (%) 100 11/01/19 06:30 Constitutional: Yes: Well Nourished, No Distress, Obese Cardiovascular: Yes: WNL - Abdominal Exam/OB Fundal Height: 40 Number of Fetuses: Single Presentation: Vertex Contractions: No Monitor Mode: External Heart Rate Location: [facility] Category: I - Vaginal Exam/OB Amniotic Membrane Status: Intact Presentation: Vertex/Position - Physical Exam Extremities: Yes: WNL Integumentary: Yes: WNL Psychiatric: Yes: WNL, Alert, Oriented Hemorrhage Risk Assessment - Risk Factors Risk Score: 0 Risk Level: Low Risk Problem List - Problems (1) Previous delivery affecting Problems reviewed: Yes Code(s): O34.219 - MATERNAL CARE FOR UNSP TYPE SCAR FROM PREVIOUS DEL (2) 39 weeks gestation of Problems reviewed: Yes Code(s): Z3A.39 - 39 WEEKS GESTATION OF (3) Umbilical hernia Code(s): K42.9 - UMBILICAL HERNIA WITHOUT OBSTRUCTION OR GANGRENE Qualifiers: Obstruction and gangrene presence: without obstruction or gangrene Qualified Code(s): K42.9 - Umbilical hernia without obstruction or gangrene Assessment/Plan prev cs iup at 39 week Umbilical Hernia Plan Repeat CS Hernia repair if possible
[2019-11-01] MEDS ORDERED: SUCCINYLCHOLINE CHLORIDE 200 MG/10 ML SYRINGE ONE (09:34)
[2019-11-01] MEDS ORDERED: NEOSTIGMINE METHYLSULFATE 0.5 MG/1 ML - 10 ML MDV ONE (09:34)
[2019-11-01] MEDS ORDERED: ROCURONIUM BROMIDE 50 MG/5 ML VIAL ONE (09:34)
[2019-11-01] MEDS ORDERED: PROPOFOL 20 ML ONE (09:34)
[2019-11-01] MEDS ORDERED: ceFAZolin SODIUM 1 GM VIAL ONE (09:44)
[2019-11-01] MEDS ORDERED: GLYCOPYRROLATE 0.2 MG/1 ML VIAL ONE (10:09)
[2019-11-01] MEDS ORDERED: DEXAMETHASONE SOD PHOSPHATE 4 MG/1 ML VIAL ONE (10:09)
[2019-11-01 10:17] LABS: CORD BASE EXCESS -3.4 mmol/L (0-2); CORD HCO3 23.8 mmHg (20-29); CORD PCO2 51.3 mmHg (30-78); CORD pH 7.284 (7.14-7.44)
[2019-11-01 10:18] LABS: CORD BASE EXCESS -1.4 mmol/L (0-2); CORD HCO3 26.9 mmHg (20-29); CORD PCO2 61.7 mmHg (30-78); CORD pH 7.257 (7.14-7.44)
[2019-11-01] MEDS ORDERED: HYDROmorphone HCL CARPU-JECT 2 MG/1 ML DISP.SYRIN IVPB ONE (10:43)
[2019-11-01] MEDS ORDERED: LACTATED RINGERS SOLUTION 1,000 ML IV SCH (10:45)
[2019-11-01] MEDS ORDERED: HYDROmorphone HCl 2 MG/ML VIAL IVPB ONE (11:00)
[2019-11-01] MEDS ORDERED: OXYTOCIN 20 UNITS in 0.9% NS 20 UNIT/1,000 ML INFUS.BAG IV ONE (11:04)
[2019-11-01] MEDS ORDERED: OXYTOCIN 20 UNITS in 0.9% NS 20 UNIT/1,000 ML INFUS.BAG IV SCH (12:00)
[2019-11-01] MEDS: IBUPROFEN 800 MG/8 ML IJ IVPB PRN (14:33)
[2019-11-02] MEDS: IBUPROFEN 800 MG/8 ML IJ IVPB PRN (01:50)
[2019-11-02 08:55] LABS: HEMATOCRIT 33.1 % (32.4-45.2); HEMOGLOBIN 10.9 GM/dL (10.7-15.3); MCH 29.5 pg (25.7-33.7); MCHC 32.9 g/dl (32.0-36.0); MEAN CELL VOLUME 89.6 fl (80-96); MEAN PLT VOLUME 7.5 fl (7.5-11.1); PLATELET COUNT 234 K/MM3 (134-434); RBC 3.69 M/mm3 (3.60-5.2); RDW 13.8 % (11.6-15.6); WHITE BLOOD COUNT 6.9 K/mm3 (4.0-10.0)
[2019-11-02] MEDS ORDERED: BISACODYL 10 MG SUPP.RECT PR PRN (09:01)
[2019-11-02] MEDS ORDERED: oxyCODONE HCL 5 MG TABLET PO PRN (09:01)
[2019-11-02] MEDS: HYDROmorphone *PCA* 10MG/50ML DISP.SYRIN PCA SCH ×2 (09:57→14:04)
[2019-11-02] MEDS: IBUPROFEN 600 MG TABLET (FP) PO PRN ×2 (10:03→17:38)
[2019-11-02] MEDS: ACETAMINOPHEN 325 MG TABLET (FP) PO PRN ×2 (10:03→17:37)
[2019-11-02] MEDS: SIMETHICONE 80 MG TAB.CHEW (FP) PO PRN ×2 (10:03→17:37)
--- NOTE | 2019-11-02 11:30 | PN ---
Progress Note (short form) - Note Progress Note: Anesthesia post op/pain Pt seen and examined S:Alert and awake,comfortable O: Vital Signs Temperature 98.2 F 11/02/19 06:27 Pulse Rate 62 11/02/19 06:27 Respiratory Rate 11/02/19 06:27 Blood Pressure 108/65 11/02/19 06:27 O2 Sat by Pulse Oximetry (%) 97 11/01/19 16:00 CBC, BMP 11/02/19 07:46 Current Active Problems A/P:Previous delivery affecting (Acute) s/p c section Doing well post op Continue current care Jack Davila
[2019-11-02] MEDS: SENNOSIDES/DOCUSATE COMBO (SENNA PLUS) TABLET (UD) PO PRN (21:39)
[2019-11-03] MEDS: ACETAMINOPHEN 325 MG TABLET (FP) PO PRN ×4 (03:32→23:00)
[2019-11-03] MEDS: IBUPROFEN 600 MG TABLET (FP) PO PRN ×3 (03:33→22:59)
--- NOTE | 2019-11-03 09:19 | OP ---
Operative Note - Note: Operative Date: 11/01/19 Pre-Operative Diagnosis: Previous Section. Umblical hernia Operation: Repeat Low transverse Section. Umbilical hernai repair Findings: Live male in OT Post-Operative Diagnosis: Same as Pre-op Surgeon: Juanita Chou Adjuster Arbitrator: Alexander Montalvo Anesthesia: General Estimated Blood Loss (mls): 700 Operative Report Dictated: Yes
[2019-11-03] MEDS: SIMETHICONE 80 MG TAB.CHEW (FP) PO PRN (10:29)
--- NOTE | 2019-11-03 15:42 | PN ---
Progress Note (SOAP) - Subjective Chief Complaint: Pt doing well - Current Medications Current Medications: Active Medications Acetaminophen (Tylenol -) 650 mg PO Q4H PRN PRN Reason: FEVER Last Admin: 11/03/19 10:28 Dose: 650 mg Documented by: Benzocaine (Americaine 20% [place] -) 1 spray TP PRN PRN PRN Reason: Pain - Topical Benzocaine (Americaine Ointment -) 1 applic RC PRN PRN PRN Reason: Pain - Topical Bisacodyl (Dulcolax Suppository -) 10 mg DC PRN PRN PRN Reason: CONSTIPATION Diphenhydramine HCl (Benadryl Injection -) 25 mg IVPUSH Q4H PRN PRN Reason: Pruritis Diphenhydramine HCl (Benadryl -) 25 mg PO Q6H PRN PRN Reason: FOR ITCHING Parenteral Electrolytes (Plasma-Lyte 148 -) 1,000 mls @ 125 mls/hr IV [facility] Last Admin: 11/01/19 07:30 Dose: 125 mls/hr Documented by: Lactated Ringer's (Lactated Ringers Solution) 1,000 mls @ 125 mls/hr IV [facility] Last Admin: 11/01/19 15:16 Dose: Not Given Documented by: Oxytocin/Sodium Chloride (Normal Saline+20 Units Oxytocin -) 20 unit in 1,000 mls @ 125 mls/hr IV [facility] Last Admin: 11/01/19 12:00 Dose: 125 mls/hr Documented by: Ibuprofen (Motrin -) 600 mg PO Q4H PRN PRN Reason: FEVER Last Admin: 11/03/19 10:28 Dose: 600 mg Documented by: Ibuprofen (Caldolor Injection -) 800 mg IVPB Q6H PRN PRN Reason: Fever - If PO not effective. Last Admin: 11/02/19 01:50 Dose: 800 mg Documented by: Methylergonovine Maleate (Methergine Injection -) 0.2 mg IM Q4H PRN PRN Reason: EXCESSIVE BLEEDING Ondansetron HCl (Zofran Injection) 4 mg IVPUSH Q4H PRN PRN Reason: NAUSEA Ondansetron HCl (Zofran Injection) 4 mg IVPUSH Q6H PRN PRN Reason: NAUSEA AND/OR VOMITING Oxycodone HCl (Roxicodone -) 5 mg PO Q4H PRN PRN Reason: PAIN LEVEL 1 - 3 Oxycodone HCl (Roxicodone -) 10 mg PO Q4H PRN PRN Reason: PAIN LEVEL 4 - 6 Senna/Docusate Sodium (Pericolace -) 2 tablet PO HS PRN PRN Reason: CONSTIPATION Last Admin: 11/02/19 21:39 Dose: 2 tablet Documented by: Simethicone (Mylicon -) 80 mg PO Q4H PRN PRN Reason: GAS Last Admin: 11/03/19 10:29 Dose: 80 mg Documented by: Saloni Chelsey/Glycerin (Tucks Pads -) 1 pad TP PRN PRN PRN Reason: Pain - Topical - Objective Vital Signs: Vital Signs Temperature 97.8 F 11/02/19 22:00 Pulse Rate 79 11/03/19 10:00 Respiratory Rate 17 11/03/19 10:00 Blood Pressure 114/67 11/03/19 10:00 O2 Sat by Pulse Oximetry (%) 97 11/01/19 16:00 Constitutional: Yes: Well Nourished, No Distress Neck: Yes: WNL Gastrointestinal: Yes: WNL, Soft, Abdomen, Obese ....Post : Yes: Uterus firm, Uterus non-tender Breast(s): Yes: WNL Extremities: Yes: WNL Edema: No Wound/Incision: Yes: Clean/Dry, Well Approximated, Dressing Dry and Intact Neurological: Yes: WNL, Alert, Oriented Labs Lab Results: CBCD WBC 6.9 K/mm3 (4.0-10.0) 11/02/19 07:46 RBC 3.69 M/mm3 (3.60-5.2) 11/02/19 07:46 Hgb 10.9 GM/dL (10.7-15.3) 11/02/19 07:46 Hct 33.1 % (32.4-45.2) 11/02/19 07:46 MCV 89.6 fl (80-96) 11/02/19 07:46 MCHC 32.9 g/dl (32.0-36.0) 11/02/19 07:46 RDW 13.8 % (11.6-15.6) 11/02/19 07:46 Plt Count 234 K/MM3 (134-434) 11/02/19 07:46 MPV 7.5 fl (7.5-11.1) 11/02/19 07:46 Problem List - Problems (1) Previous delivery affecting Code(s): O34.219 - MATERNAL CARE FOR UNSP TYPE SCAR FROM PREVIOUS DEL
[2019-11-03] MEDS: oxyCODONE HCL 5 MG TABLET PO PRN (17:23)
[2019-11-03] MEDS: SENNOSIDES/DOCUSATE COMBO (SENNA PLUS) TABLET (UD) PO PRN (23:01)
[2019-11-04 08:43] LABS: HEMOGLOBIN 10.9 GM/dL (10.7-15.3); MCH 29.6 pg (25.7-33.7); MCHC 33.1 g/dl (32.0-36.0); MEAN CELL VOLUME 89.5 fl (80-96); MEAN PLT VOLUME 7.4 fl (7.5-11.1); PLATELET COUNT 257 K/MM3 (134-434); RBC 3.69 M/mm3 (3.60-5.2); WHITE BLOOD COUNT 6.6 K/mm3 (4.0-10.0)
[2019-11-04] MEDS: oxyCODONE HCL 5 MG TABLET PO PRN (12:58)
[2019-11-04] MEDS: IBUPROFEN 600 MG TABLET (FP) PO PRN ×2 (12:59→19:56)
--- NOTE | 2019-11-04 13:14 | PN ---
Post Note - Post Date of Delivery: 11/01/19 Post Day: 3 Vital Signs: Vital Signs - 24 hr 11/03/19 22:00 Temperature 98.4 F Pulse Rate 84 Respiratory 18 Rate Blood Pressure 123/54 L Labs: Laboratory Results - last 24 hr 11/04/19 07:24 WBC 6.6 RBC 3.69 Hgb 10.9 Hct 33.0 MCV 89.5 MCH 29.6 MCHC 33.1 RDW 14.0 Plt Count 257 MPV 7.4 L - Subjective Subjective: No Complaints - Objective Afebrile: Yes Breast: Not engorged Abdomen: Soft, Non-tender, Other (intact no drainage) Uterus: Fundus firm, Non-tender Vagina: Scant lochia Extremities: Non-tender - Assessment/Plan (1) Previous delivery affecting Assessment: Other (POD3 SP repeat CS SP umblical hernia repair) Plan: Routine Care
[2019-11-04] MEDS: ACETAMINOPHEN 325 MG TABLET (FP) PO PRN (19:56)
[2019-11-04] MEDS: SIMETHICONE 80 MG TAB.CHEW (FP) PO PRN (19:56)
[2019-11-04] MEDS: SENNOSIDES/DOCUSATE COMBO (SENNA PLUS) TABLET (UD) PO PRN (19:58)
[2019-11-05 00:45] VITALS: PULSE 77
--- NOTE | 2019-11-05 06:18 | DS ---
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 Vital Signs: Vital Signs Temperature 98.6 F 11/04/19 22:00 Pulse Rate 77 11/04/19 22:00 Respiratory Rate 18 11/04/19 22:00 Blood Pressure 121/64 11/04/19 22:00 O2 Sat by Pulse Oximetry (%) 97 11/01/19 16:00 Constitutional: Yes: Well Nourished, No Distress, Obese ....Post : Yes: Uterus firm, Uterus non-tender Breast(s): Yes: WNL Edema: No Wound/Incision: Yes: Clean/Dry, Well Approximated, Steri Strips Neurological: Yes: WNL, Alert, Oriented Labs: CBC, BMP 11/04/19 07:24 Delivery - Delivery Section: Low Flap Transverse Type of Anesthesia: General EBL (cc): 500 Delivery, Single - Stages of Labor Date of Delivery: 11/01/19 Time of Delivery: 09:48 Time Placenta Delivered: 09:49 Placenta: Yes: Spontaneous - Condition of Associate Spa Director/Gas Welder Apprentice Present: Yes Name: Adrianne Momin Infant Gender: Male Weight: 7 lb 10 oz Total Hours ROM (Hrs/Mins): 1M - 1 Minute Total Score: 9 5 Minutes Total Score: 9 - Craig Feeding Plan Initial Plan: Elected not to breastfeed exclusively throughout hospitalization Discharge Summary Problems reviewed: Yes Reason For Visit: ADMIT C/S Current Active Problems Previous delivery affecting (Acute) Procedures: Principal: Low transverse Section Other Procedures: umbilical hernia repair Hospital Course: Unremarkable Condition: Good - Instructions Diet, Activity, Other Instructions: Physical activity Resume your normal everyday activity as tolerated no heavy lifting or exercise until seen by your surgeon. You may walk unlimited charissa of and climb stairs. You may resume driving the car when you feel safe and comfortable behind the wheel. No sexual activity as instructed. Wound care If you have a bandage, leave it on, and keep dry for 48-72 hours. After that time discard the outer bandage. If they are tapes on the skin under the out of bandage leave them in place. They will peel off in the next 7 to 10 days. Do Not Peel them off. You may shower the day after surgery. If there are tapes present on the skin, you may shower over them. Diet There are no dietary restrictions. Eat healthy, high-fiber foods. Drink 6 to 8 glasses of liquid each day. This will assist in keeping your bowels are regular. Pain management You may take Tylenol or acetaminophen or Ibuprofen (for example, Motrin, Advil etc.) from my pain prescription medication is ordered should be taken as prescribed for moderate to severe pain. Call MD for any of the following: Severe pain not relieved by medication Fever of 101 or higher Excessive bleeding or drainage on dressing Inability to urinate Referrals: Juanita Chou MD [Staff Physician] - Disposition: HOME - Home Medications Comprehensive Discharge Medication List: Ambulatory Orders Vitamins (Sjr) - 1 tab PO DAILY 01/04/18 Ibuprofen [Motrin -] 600 mg PO QID #28 tablet 11/04/19
[2019-11-05] MEDS: ACETAMINOPHEN 325 MG TABLET (FP) PO PRN ×2 (06:26→11:46)
[2019-11-05] MEDS: IBUPROFEN 600 MG TABLET (FP) PO PRN ×2 (06:27→11:45)
[2019-11-05 10:02] VITALS: BP 120/65; TEMP 98.2
[2019-11-05] MEDS: SIMETHICONE 80 MG TAB.CHEW (FP) PO PRN (11:46)
--- NOTE | 2019-11-06 17:21 | PATH ---
Surgical Pathology Report Patient Name: KELSEY CARNEY Med. Rec. #: [id number] /Age/Gender: 1990 (Age: 29) / F Account: [id number] Location: [facility] OBS/[facility]TER Taken: 11/01/2019 Received: 11/02/2019 Reported: 11/06/2019 Physicians: Juanita Chou M.D. Specimen(s) Received PLACENTA Clinical History Repeat Final Diagnosis PLACENTA: THIRD TRIMESTER PLACENTA WITH FOCAL INCREASED PERIVILLOUS FIBRIN DEPOSITION. TRIVASCULAR CORD. MEMBRANES WITH NO DIAGNOSTIC ABNORMALITIES. Electronically Signed Norma David M.D. Gross Description The specimen is received fresh labeled placenta and is a 590 gram, 19 x17 x 2.1cm. placenta with attached membranes and umbilical cord. The attached membranes are glistening, translucent, and insert marginally. The umbilical cord measures 10 cm. in length and averages 1.5 cm. in diameter. The cord inserts centrally, 6 centimeter to the nearest margin. No true knots or strictures are identified. Cut surface of the umbilical cord reveals 3 vessels. Sectioning reveals red-brown, spongy parenchyma. No lesions are identified. Explosive Operator Grenade sections are submitted in three cassettes as follows: 1- membrane rolls and umbilical cord; 2-3- full thickness sections of placenta KWS/11/02/2019 jessicaki/11/02/2019
--- NOTE | 2019-11-11 09:36 | OP ---
DATE OF OPERATION: 11/01/2019 PREOPERATIVE DIAGNOSIS: Previous section and umbilical hernia, intrauterine at 39 weeks. OPERATION: 1. Repeat low transverse section. 2. Umbilical hernia repair. SURGEON: Juanita Chou MD BUSINESS DEVELOPMENT COORDINATOR: BURAK Ramirez; MD unavailable. ANESTHESIA: General. PROCEDURE: Patient was taken to the operating room, placed in the supine position, prepped and draped in the usual sterile fashion. After general anesthesia had been given, a timeout was performed in accordance with hospital regulation. Pfannenstiel skin incision was made with a scalpel. Cautery was then used to go through the layers of the abdominal wall to the level of the fascia. Fascia was cut in the midline and cautery was then used to open the fascia in smiling fashion. Muscle was split in the midline. Peritoneal cavity was then entered and carried up and downward. Bladder retractor was then placed. Scalpel was then used to make a low transverse uterine incision. Incision was carried upward using bandage scissors. A live was delivered in an OT position. Shoulders were delivered without difficulty. Cord was clamped and cut. Cord blood obtained. Cord pH obtained. The infant was handed to quality assurance manager. Placenta was manually extracted from the uterus, the uterus exteriorized and cleaned with clean lap pads. Uterine incision was then closed using 0 Biosyn suture, first layer continuous interlocking, second layer imbricating the first layer. Hemostasis was achieved. Uterus interiorized. Abdominal cavity was cleaned with clean lap pads. Tubes and ovaries were noted to be normal. Abdominal sweep done. Peritoneum closed using 0 Biosyn suture in a continuous fashion. Muscle was approximated in the midline using 0 Vicryl suture. Fascia was then closed using 0 Vicryl suture in 2 parts. Skin was then closed using 3-0 Vicryl in subcuticular fashion. The wound was washed and dressed. The patient had tolerated procedure well. Estimated blood loss was 700 mL. Patient was delivered by general anesthesia due to inability to obtain a spinal due to rods in the patient's back. JUANITA CHOU M.D. [id number]
== END 2019-11-05 12:45 | disposition home or self-care (01) | DRG 540 ==
LOC: JLDR 06:05 → J3W 12:01
PROVIDERS: ADMIT Obstetrics & Gynecology; ATTEND Obstetrics & Gynecology
PROC: 10D00Z1 Extraction of Products of Conception, Low, Open Approach (ICD-10-PCS; principal; 2019-11-01)
PROC: 0WQF0ZZ Repair Abdominal Wall, Open Approach (ICD-10-PCS; 2019-11-01)
DX: O82 Encounter for cesarean delivery without indication (principal); O13.3 Gestational [pregnancy-induced] hypertension without significant proteinuria, third trimester; O34.219 Maternal care for unspecified type scar from previous cesarean delivery; O69.81X0 Labor and delivery complicated by cord around neck, without compression, not applicable or unspecified; O99.824 Streptococcus B carrier state complicating childbirth; B95.1 Streptococcus, group B, as the cause of diseases classified elsewhere; K42.9 Umbilical hernia without obstruction or gangrene; K21.9 Gastro-esophageal reflux disease without esophagitis; Z3A.39 39 weeks gestation of pregnancy; Z37.0 Single live birth
CPT/HCPCS: 36415; 36600; 82803; 85027; 86705; 87340; 88307-TC